=== PATIENT | male | born 1990 | race Caucasian/White ===

== ENCOUNTER → 2023-11-08 16:01 | Outpatient (REF) | payer OTHER, SELFPAY | LOC: HWRAD 16:01 | PROVIDERS: ATTENDING PHYSICIAN Family Medicine | DX: J31.0 Chronic rhinitis (principal); R09.81 Nasal congestion | CPT/HCPCS: 70486 ==

== ENCOUNTER 2024-02-07 08:21 | Outpatient (RCR) | payer OTHER, SELFPAY | END 2024-02-07 23:59 | disposition home or self-care (01) | LOC: RPT 08:21 | PROVIDERS: ATTENDING PHYSICIAN Family Medicine | DX: M54.50 Low back pain, unspecified (principal); Z73.6 Limitation of activities due to disability; R26.2 Difficulty in walking, not elsewhere classified; M62.81 Muscle weakness (generalized); R20.0 Anesthesia of skin | CPT/HCPCS: 97110; 97162; 97535 ==

== ENCOUNTER 2024-03-06 08:07 | Outpatient (RCR) | payer OTHER, SELFPAY | END 2024-03-06 23:59 | disposition home or self-care (01) | LOC: RPT 08:07 | PROVIDERS: ATTENDING PHYSICIAN Family Medicine | DX: M54.50 Low back pain, unspecified (principal); Z73.6 Limitation of activities due to disability; R26.2 Difficulty in walking, not elsewhere classified; M62.81 Muscle weakness (generalized); R20.0 Anesthesia of skin | CPT/HCPCS: 70030; 97010; 97110; 97112; 97140; 97535 ==

== ENCOUNTER → 2024-03-22 20:39 | Outpatient (REF) | payer OTHER, SELFPAY | LOC: MRI 3T 20:39 | PROVIDERS: ATTENDING PHYSICIAN Family Medicine | DX: M54.16 Radiculopathy, lumbar region (principal); M54.50 Low back pain, unspecified | CPT/HCPCS: 72148 ==

== ENCOUNTER 2024-12-20 06:17 | Day surgery (SDC) | payer BC, SELFPAY ==
[2024-12-20] VITALS (7 sets, daily range): BP systolic 130–181; BP diastolic 79–107; BMI 40.6
[2024-12-20] MEDS: NORMOSOL-R/PLASMALYTE-A 1000 IV (07:41)
[2024-12-20] MEDS: ROXICODONE 5 MG PO (11:01)
== END 2024-12-20 11:38 | disposition home or self-care (01) ==
LOC: SDS 06:17
PROVIDERS: ATTENDING PHYSICIAN Otolaryngology; FAMILY PHYSICIAN Family Medicine
DX: J34.2 Deviated nasal septum (principal); J34.3 Hypertrophy of nasal turbinates; G47.33 Obstructive sleep apnea (adult) (pediatric)
CPT/HCPCS: 30520; 30802